=== PATIENT | male | born 1965 | race Caucasian/White ===

== ENCOUNTER 2023-07-21 16:19 | Inpatient (IN) | payer BC, OTHER ==
[2023-07-21] MEDS ORDERED: Morphine 4 MG/ML VIAL ONE (16:53)
[2023-07-21] MEDS ORDERED: Ondansetron PF 4 MG/2 ML Vial ONE ×2 (16:53→18:40)
[2023-07-21 17:01] LABS: #Basophils 0.1 thou/uL (0.0-0.2); #Eosinphils 0.2 thou/uL (0.0-0.7); #Monocytes 1.4 thou/uL (0.11-0.59); #Neutrophils 9.2 thou/uL (1.40-6.50); %Basophils 0.3 % (0.0-1.0); %Eosinophils 1.6 % (0.0-10.0); %Lymphocytes 25.1 % (21.0-51.0); %Monocytes 9.8 % (0.0-10.0); %Neutrophils 62.9 % (42.0-75.0); Hematocrit 45.4 % (42.0-52.0); Hemoglobin 15.6 g/dL (14.0-18.0); Mean Corpuscular HGB CONC 34.4 g/dL (32.0-36.0); Mean Corpuscular Hemoglobin 30.6 pg (27.0-31.0); Platelet Count 227 10x3/uL (130-400); RBC Distribution Width 13.2 % (11.5-14.5); White Blood Cell (WBC) Count 14.7 10x3/uL (4.8-10.8)
[2023-07-21] MEDS ORDERED: TETANUS, DIPHTHERIA TOX,ADULT (TDVAX) 0.5 ML VIAL IM ONE (17:22)
[2023-07-21] MEDS ORDERED: Glucagon 1 MG/ML KIT IM PRN (17:22)
[2023-07-21] MEDS ORDERED: Dextrose 50% Abboject 50 ML SYRINGE SLOW IVP PRN (17:22)
[2023-07-21] MEDS ORDERED: Dextrose 5% in Water 1,000 ML IV PRN (17:22)
[2023-07-21] MEDS ORDERED: Promethazine HCl 25 MG/ML VIAL IM PRN (17:27)
[2023-07-21] MEDS ORDERED: Ondansetron ODT 4 MG TAB PO PRN (17:27)
[2023-07-21] MEDS ORDERED: Ondansetron PF 4 MG/2 ML Vial IVP PRN (17:27)
[2023-07-21] MEDS ORDERED: traMADol HCl 50 MG TAB PO PRN (17:28)
[2023-07-21] MEDS ORDERED: Ketamine 50 MG/ML (10ML VIAL) ONE (17:35)
[2023-07-21 17:40] LABS: ALT (SGPT) 22 U/L (8-55); AST (SGOT) 21 U/L (5-34); Albumin 4.1 g/dL (3.5-5.0); Alkaline Phosphatase 74 U/L (40-110); Anion Gap 14 mmol/L (10-20); BUN (Urea Nitrogen) 14 mg/dL (8.4-25.7); Bilirubin, Total 0.9 mg/dL (0.2-1.2); Calc. Creatinine Clearance 0 mL/min (70-130); Calcium 8.9 mg/dL (7.8-10.44); Carbon Dioxide 20 mmol/L (22-29); Chloride 105 mmol/L (98-107); Estimated GFR 87; Globulin 2.9 g/dL (2.4-3.5); Glucose 88 mg/dL (70-105); Sodium 135 mmol/L (136-145)
[2023-07-21 18:15] LABS: Prothrombin Time 13.7 sec (12.0-14.7)
[2023-07-21 18:16] LABS: PTT 26.4 sec (22.9-36.1)
[2023-07-21] MEDS ORDERED: Propofol 1,000 MG/100 ML VIAL IV ONE (18:40)
[2023-07-21] MEDS ORDERED: PROPOFOL 20 ML ONE (18:41)
[2023-07-21] MEDS ORDERED: fentaNYL 50 mcg/mL 1 mL Vial ONE (19:23)
[2023-07-21 20:29] VITALS: BMI 28.1
[2023-07-21] MEDS: Morphine 2 MG/ML VIAL SLOW IVP PRN (21:35)
[2023-07-21] MEDS: Ibuprofen 200 MG TAB PO SCH (21:40)
[2023-07-21] MEDS: Gabapentin 300 MG CAP PO SCH (21:40)
[2023-07-21] MEDS: Famotidine 20 MG TAB PO SCH (21:41)
[2023-07-21] MEDS ORDERED: Sodium Chloride 0.9% 1,000 ML IV SCH (23:55)
[2023-07-22] MEDS: Acetaminophen 500 MG TAB PO SCH ×6 (00:07→23:37)
[2023-07-22] MEDS: traMADol HCl 50 MG TAB PO SCH ×4 (00:08→11:53)
[2023-07-22] MEDS: Ibuprofen 200 MG TAB PO SCH ×3 (06:20→21:03)
[2023-07-22 06:44] LABS: #Eosinphils 0.3 thou/uL (0.0-0.7); #Monocytes 1.2 thou/uL (0.11-0.59); #Neutrophils 4.6 thou/uL (1.40-6.50); %Basophils 0.3 % (0.0-1.0); %Eosinophils 2.7 % (0.0-10.0); %Lymphocytes 35.3 % (21.0-51.0); %Monocytes 12.8 % (0.0-10.0); %Neutrophils 48.6 % (42.0-75.0); Hematocrit 41.9 % (42.0-52.0); Hemoglobin 14.1 g/dL (14.0-18.0); Mean Corpuscular HGB CONC 33.7 g/dL (32.0-36.0); Mean Corpuscular Hemoglobin 31.1 pg (27.0-31.0); Mean Platelet Volume 9.4 fL (7.4-10.4); Platelet Count 216 10x3/uL (130-400); RBC Distribution Width 13.5 % (11.5-14.5); Red Blood Cell (RBC) Count 4.54 mill/uL (4.70-6.10); White Blood Cell (WBC) Count 9.4 10x3/uL (4.8-10.8)
[2023-07-22 06:55] LABS: Anion Gap 8 mmol/L (10-20); BUN (Urea Nitrogen) 10 mg/dL (8.4-25.7); Calc. Creatinine Clearance 128 mL/min (70-130); Calcium 8.3 mg/dL (7.8-10.44); Carbon Dioxide 25 mmol/L (22-29); Chloride 107 mmol/L (98-107); Estimated GFR 100; Glucose 87 mg/dL (70-105); Mean Corpuscular Volume 92.3 fl (78.0-98.0); Potassium 3.8 mmol/L (3.5-5.1); Sodium 136 mmol/L (136-145)
[2023-07-22] MEDS: Ferrous Sulfate 325 MG TAB PO SCH ×2 (08:24→17:42)
[2023-07-22] MEDS: Gabapentin 300 MG CAP PO SCH ×3 (08:24→21:02)
[2023-07-22] MEDS: Famotidine 20 MG TAB PO SCH ×2 (08:25→21:02)
[2023-07-22] MEDS: Ascorbic Acid 500 mg Chewable Tablet PO SCH (08:25)
[2023-07-22] MEDS: Morphine 2 MG/ML VIAL SLOW IVP PRN (08:28)
[2023-07-22] MEDS ORDERED: Bupivacaine PF 0.5% 30 ML VIAL ONE (12:22)
[2023-07-22] MEDS ORDERED: fentaNYL 50 mcg/mL 1 mL Vial ONE ×4 (12:22→16:16)
[2023-07-22] MEDS ORDERED: Midazolam HCl 2 mg/2 ml Vial ONE (12:22)
[2023-07-22] MEDS ORDERED: Mineral Oil Sterile 10 ML VIAL ONE (12:27)
[2023-07-22] MEDS ORDERED: Vancomycin 1 GM VIAL ONE (12:27)
[2023-07-22] MEDS ORDERED: Bupivacaine HCl 0.5%/Epinephrine 1:200,000/PF 30 ml Vial ONE (12:40)
[2023-07-22] MEDS ORDERED: fentaNYL PF 100 MCG/2 ML SYRINGE ONE (12:45)
[2023-07-22] MEDS ORDERED: Sodium Chloride 0.9% 100 ML ONE (12:46)
[2023-07-22] MEDS ORDERED: CEFAZOLIN 2 GM VIAL ONE (12:46)
[2023-07-22] MEDS ORDERED: fentaNYL 50 mcg/mL 1 mL Vial SLOW IVP PRN (12:52)
[2023-07-22] MEDS ORDERED: HYDROcodone/Acetaminophen 10/325 mg Tablet PO PRN ×3 (13:00→17:30)
[2023-07-22] MEDS ORDERED: Ropivacaine 0.2% 550 ML 550 ML NERVE BLCK SCH ×2 (13:00→17:30)
[2023-07-22] MEDS ORDERED: Ondansetron PF 4 MG/2 ML Vial IVP PRN ×2 (13:00→17:30)
[2023-07-22] MEDS ORDERED: Promethazine HCl 25 MG/ML VIAL IM PRN ×3 (13:00→17:30)
[2023-07-22] MEDS ORDERED: Zolpidem Tartrate 5 MG TAB PO PRN ×2 (13:00→17:30)
[2023-07-22] MEDS ORDERED: traMADol HCl 50 MG TAB PO PRN ×4 (13:00→17:30)
[2023-07-22] MEDS ORDERED: Dexamethasone 20 MG/5 ML VIAL ONE (13:05)
[2023-07-22] MEDS ORDERED: PROPOFOL 200 MG/20 ML VIAL ONE (13:05)
[2023-07-22] MEDS ORDERED: Ketorolac Tromethamine 30 MG/ML VIAL ONE (13:05)
[2023-07-22] MEDS ORDERED: Lidocaine 1% PF 5 ML VIAL ONE (13:05)
[2023-07-22] MEDS ORDERED: Ondansetron PF 4 MG/2 ML Vial ONE (13:05)
[2023-07-22] MEDS ORDERED: Ondansetron HCl/PF 4 MG/2 ML Vial IVP PRN (14:32)
[2023-07-22] MEDS: Ketorolac Tromethamine 30 MG/ML VIAL IVP SCH (17:43)
[2023-07-22] MEDS ORDERED: Ketorolac Tromethamine 30 MG/ML VIAL IVP SCH (18:00)
[2023-07-22] MEDS: HYDROcodone/Acetaminophen 10/325 mg Tablet PO PRN ×2 (18:38→21:04)
[2023-07-22] MEDS: CEFAZOLIN 2 GM in Sodium Chloride 0.9% 100 ML IVPB SCH (21:02)
[2023-07-23] MEDS: Ketorolac Tromethamine 30 MG/ML VIAL IVP SCH ×3 (00:03→11:47)
[2023-07-23] MEDS: CEFAZOLIN 2 GM in Sodium Chloride 0.9% 100 ML IVPB SCH ×2 (05:50→14:28)
[2023-07-23 05:53] LABS: #Eosinphils 0.1 thou/uL (0.0-0.7); #Monocytes 1.4 thou/uL (0.11-0.59); #Neutrophils 9.8 thou/uL (1.40-6.50); %Basophils 0.1 % (0.0-1.0); %Eosinophils 0.6 % (0.0-10.0); %Lymphocytes 16.9 % (21.0-51.0); %Monocytes 10.1 % (0.0-10.0); Hematocrit 41.7 % (42.0-52.0); Hemoglobin 13.9 g/dL (14.0-18.0); Mean Corpuscular HGB CONC 33.3 g/dL (32.0-36.0); Mean Corpuscular Volume 92.9 fl (78.0-98.0); Mean Platelet Volume 9.8 fL (7.4-10.4); Platelet Count 209 10x3/uL (130-400); RBC Distribution Width 13.2 % (11.5-14.5); Red Blood Cell (RBC) Count 4.49 mill/uL (4.70-6.10); White Blood Cell (WBC) Count 13.6 10x3/uL (4.8-10.8)
[2023-07-23] MEDS: Acetaminophen 500 MG TAB PO SCH ×2 (05:53→11:48)
[2023-07-23] MEDS: Ibuprofen 200 MG TAB PO SCH (05:53)
[2023-07-23] MEDS: HYDROcodone/Acetaminophen 10/325 mg Tablet PO PRN ×2 (07:06→14:45)
[2023-07-23] MEDS: Ferrous Sulfate 325 MG TAB PO SCH (08:54)
[2023-07-23] MEDS: Gabapentin 300 MG CAP PO SCH ×2 (08:54→14:28)
[2023-07-23] MEDS: Famotidine 20 MG TAB PO SCH (08:56)
[2023-07-23] MEDS: Ascorbic Acid 500 mg Chewable Tablet PO SCH (08:57)
[2023-07-23] MEDS ORDERED: diphenhydrAMINE 50 MG CAP PO PRN (09:22)
[2023-07-23] MEDS ORDERED: Ondansetron ODT 4 MG TAB PO PRN (14:38)
[2023-07-23 15:40] VITALS: BP 138/76; TEMP 98.1
[2023-07-23] MEDS ORDERED: Senokot S 8.6-50 MG TAB PO SCH (21:00)
[2023-07-24] MEDS ORDERED: Naloxegol 12.5 MG TAB PO SCH (07:30)
[2023-07-24] MEDS ORDERED: Polyethylene Glycol 3350 17 GM Packet PO SCH (09:00)
== END 2023-07-23 16:12 | disposition home or self-care (01) | DRG 494 ==
LOC: ERS 16:19 → T4-A 17:22 → SURG A 07-22 15:08 → OBSVTOIN 07-22 15:08 → SJJU 07-22 17:07
PROVIDERS: ADMIT Orthopaedic Surgery; ATTEND Orthopaedic Surgery
PROC: 0QSH06Z Reposition Left Tibia with Intramedullary Internal Fixation Device, Open Approach (ICD-10-PCS; principal; 2023-07-22)
PROC: 3E033XZ Introduction of Vasopressor into Peripheral Vein, Percutaneous Approach (ICD-10-PCS; 2023-07-22)
DX: S82.302A Unspecified fracture of lower end of left tibia, initial encounter for closed fracture (principal); S82.832A Other fracture of upper and lower end of left fibula, initial encounter for closed fracture; J45.909 Unspecified asthma, uncomplicated; E78.5 Hyperlipidemia, unspecified; F10.90 Alcohol use, unspecified, uncomplicated; G89.11 Acute pain due to trauma; W18.30XA Fall on same level, unspecified, initial encounter; Z98.890 Other specified postprocedural states; Z90.89 Acquired absence of other organs; Z87.891 Personal history of nicotine dependence
CPT/HCPCS: 36415; 71045; 80048; 80053; 85025; 85610; 85730; 86850; 86900; 86901; A4306; C1713; J1100; J1885; J2250; J2270; J2272; J2405; J2704; J2795; J3010; J3370; J3490; S0020

== ENCOUNTER 2024-05-26 13:13 | Outpatient (CLI) | payer BC ==
[2024-05-26 15:20] LABS: #Basophils 0.04 10x3/uL (0.0-0.2); #Eosinphils 0.24 10x3/uL (0.0-0.5); #Monocytes 1.18 10x3/uL (0.0-1.1); #Neutrophils 8.74 10x3/uL (1.5-8.4); %Basophils 0.3 % (0.0-2.0); %Eosinophils 1.9 % (0.0-6.0); %Lymphocytes 19.2 % (18.0-47.0); %Monocytes 9.3 % (0.0-10.0); %Neutrophils 68.9 % (40.0-75.0); Hematocrit 48.4 % (38.8-50.0); Mean Corpuscular HGB CONC 35.1 g/dL (32.0-36.0); Mean Corpuscular Hemoglobin 31.3 pg (27.0-33.0); Mean Corpuscular Volume 89.1 fL (81.2-95.1); Platelet Count 243 10x3/uL (150-450); RBC Distribution Width 13.2 % (11.5-14.5); Red Blood Cell (RBC) Count 5.43 10x6/uL (4.32-5.72); White Blood Cell (WBC) Count 12.7 10x3/uL (3.5-10.5)
[2024-05-26 15:26] LABS: Anion Gap 16 mmol/L (10-20); BUN (Urea Nitrogen) 20 mg/dL (8.4-25.7); Calc. Creatinine Clearance 0 mL/min (70-130); Calcium 9.5 mg/dL (7.8-10.44); Carbon Dioxide 21 mmol/L (23-31); Chloride 105 mmol/L (98-107); Estimated GFR 85; Glucose 76 mg/dL (80-115); Potassium 4.4 mmol/L (3.5-5.1); Sodium 138 mmol/L (136-145)
== END 2024-05-26 13:14 | disposition home or self-care (01) ==
LOC: LABBT 13:13
PROVIDERS: ATTEND Specialist
DX: Z01.818 Encounter for other preprocedural examination (principal); K42.9 Umbilical hernia without obstruction or gangrene; M79.89 Other specified soft tissue disorders
CPT/HCPCS: 71046; 80048; 85025; 93005; 93010

== ENCOUNTER 2024-06-01 06:59 | Day surgery (SDC) | payer BC ==
[2024-05-26 13:39] VITALS: BMI 27.0
[2024-06-01] MEDS ORDERED: Ketorolac Tromethamine 30 MG (1 mL) VIAL ONE (07:43)
[2024-06-01] MEDS ORDERED: Acetaminophen 500 MG TAB ONE (07:43)
[2024-06-01] MEDS ORDERED: EPINEPHrine 1 MG/ML VIAL ONE ×2 (08:02→09:33)
[2024-06-01] MEDS ORDERED: Bupivacaine 0.25% HCL 30 ML VIAL ONE ×2 (08:02→09:32)
[2024-06-01] MEDS ORDERED: Rocuronium Bromide 10 MG/ML (10ML VIAL) ONE (08:45)
[2024-06-01] MEDS ORDERED: Lidocaine 2% PF 5 ML VIAL ONE (08:45)
[2024-06-01] MEDS ORDERED: PROPOFOL 20 ML ONE ×2 (08:45→09:31)
[2024-06-01] MEDS ORDERED: fentaNYL PF 100 MCG/2 ML SYRINGE ONE (08:45)
[2024-06-01] MEDS ORDERED: CEFAZOLIN 2 GM VIAL ONE (08:52)
[2024-06-01] MEDS ORDERED: Sodium Chloride 0.9% 100 ML ONE (08:52)
[2024-06-01] MEDS ORDERED: Ondansetron PF 4 MG/2 ML Vial ONE (09:16)
[2024-06-01] MEDS ORDERED: Dexamethasone 4 mg/ml Vial ONE (09:16)
[2024-06-01] MEDS ORDERED: SUGAMMADEX SODIUM 200 MG/2 ML VIAL ONE (09:31)
[2024-06-01] MEDS ORDERED: fentaNYL 50 mcg/mL 1 mL Vial ONE ×4 (10:28→11:24)
[2024-06-01] MEDS ORDERED: HYDROcodone/Acetaminophen 5/325 mg Tablet ONE (12:18)
== END 2024-06-01 12:40 | disposition home or self-care (01) ==
LOC: SDC 06:59
PROVIDERS: ATTEND Specialist
PROC: 0WBF0ZZ Excision of Abdominal Wall, Open Approach (ICD-10-PCS; principal; 2024-06-01)
PROC: 0WQF0ZZ Repair Abdominal Wall, Open Approach (ICD-10-PCS; principal; 2024-06-01)
DX: K42.9 Umbilical hernia without obstruction or gangrene (principal); D17.9 Benign lipomatous neoplasm, unspecified; E78.5 Hyperlipidemia, unspecified; J45.909 Unspecified asthma, uncomplicated; F17.200 Nicotine dependence, unspecified, uncomplicated; Z79.51 Long term (current) use of inhaled steroids; Z79.899 Other long term (current) drug therapy; Z98.890 Other specified postprocedural states
CPT/HCPCS: 88304; A6258; C1889; J0171; J0665; J1100; J1885; J2001; J2405; J2704; J3010